=== PATIENT | male | born 1940 | race Hispanic/Latino ===

== ENCOUNTER 2019-07-06 07:24 | Day surgery (SDC) | payer OTHER, MEDICARE ==
[2019-07-06] VITALS (14 sets, daily range): BP systolic 130–161; BP diastolic 69–79
[~2019-07-06] VITALS: Ht 182.9 cm; Wt 103.0 kg
[2019-07-06] MEDS ORDERED: SODIUM CHLORIDE 0.9% 1000ML 1,000 ML IV ONE (07:42)
[2019-07-06] MEDS ORDERED: PROPOFOL 10 MG/ML 20ML VIAL IV ONE (09:03)
[2019-07-06] MEDS ORDERED: METF-446 PO (10:37)
[2019-07-06] MEDS ORDERED: INSU300I SQ (10:37)
[2019-07-06] MEDS ORDERED: VITAD50000 PO (10:37)
[2019-07-06] MEDS ORDERED: DUTA0.5C18 PO (10:37)
[2019-07-06] MEDS ORDERED: TAMS-1 PO (10:37)
[2019-07-06] MEDS ORDERED: MECL-160 PO (10:37)
[2019-07-06] MEDS ORDERED: OMEG100014 PO (10:37)
== END 2019-07-06 10:55 | disposition home or self-care (01) ==
LOC: DAH 07:24 → ENDO 07:24
PROVIDERS: ATTEND Internal Medicine Gastroenterology
DX: R93.3 Abnormal findings on diagnostic imaging of other parts of digestive tract (principal); K31.89 Other diseases of stomach and duodenum; R19.00 Intra-abdominal and pelvic swelling, mass and lump, unspecified site; K92.2 Gastrointestinal hemorrhage, unspecified; B96.81 Helicobacter pylori [H. pylori] as the cause of diseases classified elsewhere; E11.9 Type 2 diabetes mellitus without complications; Z79.84 Long term (current) use of oral hypoglycemic drugs; Z79.899 Other long term (current) drug therapy
CPT/HCPCS: 43238; 82948; A4215; A4620; J2704; J7030